=== PATIENT | female | born 2000 | race Asian ===

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

== ENCOUNTER 2018-01-12 12:58 | Observation (INO) | payer OTHER ==
[~2018-01-12] VITALS: Ht 157.5 cm; Wt 58.1 kg
[~2018-01-12 12:58] MED LIST: ALPR1TAB3 PO; BUPR-79 PO; CALC500C3 PO; IBUP-103 PO; VENL150C56 PO
[2018-01-12] MEDS ORDERED: SODIUM CHLORIDE 0.9% 500ML 500 ML IV STA (13:36)
[2018-01-12] MEDS ORDERED: KETOROLAC TROMETHAMINE 30 MG/ML VIAL IV STA (13:36)
--- NOTE | 2018-01-12 13:42 | EMERGENCY ROOM VISIT NOTE ---
History First contact with patient: 13:12 Chief Complaint: ABDOMINAL PAIN Stated Complaint: ABDOMINAL PAIN, HX OF PID & OVARIAN TOSIOS Nursing Triage Summary: abd pain starting this am pt denies n/v/d pt reports hx of treated PID, ovarian torsion, and abscess in fallopian tube History of Present Illness The patient is a 17 year old female who presents to the Emergency Room with complaints of lower abdominal pain that she woke up with this morning. She describes it as a sharp, stabbing, constant sensation particularly in the lower abdomen. She has not taken anything for pain. She denies any nausea or vomiting. Her last bowel movement was 20 minutes ago and reportedly normal. The patient is sexually active with one partner. She uses an IUD for control. The patient has a history of a laparoscopy in September 2017 for ovarian torsion and abscess of the fallopian tube. She has also been treated for PID. The patient is currently having her menses. She denies any heavy bleeding. No dyspareunia Review of Systems 10 system review performed and negative unless noted in HPI or below Past Medical/Surgical History History of PID, ovarian torsion, abscess of the fallopian tube and September 2017 Social History Smoking Status: Never Smoker Occupation Status: [place] [employer] student Current/Historical Medications Scheduled Bupropion (Wellbutrin Sr), 150 MG PO DAILY Venlafaxine Hcl (Effexor Extended Rel), 150 MG PO DAILY Scheduled PRN Alprazolam (Xanax), 1 MG PO DAILY PRN for Anxiety Physical Exam Vital Signs Date Time Temp Pulse Resp B/P (MAP) Pulse Ox O2 Delivery O2 Flow Rate FiO2 01/12/18 21:19 99 18 105/70 97 Room Air 01/12/18 19:28 73 18 108/65 100 Room Air 01/12/18 18:43 95 18 120/72 95 Room Air 01/12/18 16:54 83 16 119/72 100 Room Air 01/12/18 14:51 83 16 117/87 100 Room Air 01/12/18 13:09 36.3 86 20 118/89 99 Room Air Physical Exam VITALS: Vitals are noted on the nurse's note and reviewed by myself. Vital signs stable. GENERAL: 17-year-old female, mildly uncomfortable,. SKIN: The skin was without rashes, erythema, edema, or bruising. HEAD: Normocephalic atraumatic. MOUTH: Mucous membranes slightly dry NECK: Supple without nuchal rigidity. No lymphadenopathy. Cervical spine is nontender. No JVD. HEART: Regular rate and rhythm without murmurs gallops or rubs. LUNGS: Clear to auscultation bilaterally without wheezes, rales or rhonchi. No accessory muscle use. ABDOMEN: Positive bowel sounds x 4.Soft, tenderness in the lower abdomen left greater than right lower quadrant., without organomegaly. No guarding or rebound tenderness. : External genitalia free of any lesions. Speculum exam reveals a small amount of cream-colored discharge in the vaginal vault. Small area of erythema on the cervix. The os is closed. Bimanual exam reveals no cervical motion tenderness. No masses on the uterus or adnexa bilaterally. MUSCULOSKELETAL: No muscle atrophy, erythema, or edema noted. Strength 5/5 throughout. NEURO: Patient was alert and oriented to person place and time. Normal sensation to touch. No focal neurological deficits. Medical Decision & Procedures ER Provider Diagnostic Interpretation: CT abdomen and pelvis with IV and oral contrast IMPRESSION: Findings suggestive of early acute appendicitis. Discussed with Carmenza Prajapati at time of dictation. Electronically signed by: Jaxson Burch M.D. 01/12/2018 7:36 PM Dictated Date/Time: 01/12/2018 7:29 PM The status of this report is Signed. Draft = Not yet reviewed or approved by Radiologist. Signed = Reviewed and approved by Radiologist. pelvic US IMPRESSION: 1. Appropriately positioned IUD by sonography. 2. Unremarkable pelvic ultrasound. Electronically signed by: Jaxson Burch M.D. 01/12/2018 2:57 PM Dictated Date/Time: 01/12/2018 2:51 PM The status of this report is Signed. Draft = Not yet reviewed or approved by Radiologist. Signed = Reviewed and approved by Radiologist. Laboratory Results 01/12/18 13:30 Red Blood Count 5.13, Mean Corpuscular Volume 82.8, Mean Corpuscular Hemoglobin 28.5, Mean Corpuscular Hemoglobin Concent 34.4, Mean Platelet Volume 8.7, Neutrophils (%) (Auto) 81.5, Lymphocytes (%) (Auto) 10.9, Monocytes (%) (Auto) 5.7, Eosinophils (%) (Auto) 1.4, Basophils (%) (Auto) 0.3, Neutrophils # (Auto) 11.93, Lymphocytes # (Auto) 1.60, Monocytes # (Auto) 0.83, Eosinophils # (Auto) 0.21, Basophils # (Auto) 0.04 01/12/18 13:30 Test 01/12/18 13:20 01/12/18 13:30 01/12/18 19:20 Urine Color YELLOW Urine Appearance SL CLOUDY (CLEAR) Urine pH 6.0 (4.5-7.5) Urine Specific [place] 1.025 (1.000-1.030) Urine Protein NEG (NEG) Urine Glucose (UA) NEG (NEG) Urine Ketones NEG (NEG) Urine Occult Blood 3+ (NEG) Urine Nitrite NEG (NEG) Urine Bilirubin NEG (NEG) Urine Urobilinogen NEG (NEG) Urine Leukocyte Esterase SMALL (NEG) Urine RBC >30 /hpf (0-4) Urine WBC 10-30 /hpf (0-5) Urine Epithelial Cells >30 /lpf (0-5) Urine Bacteria 1+ (NEG) White Blood Count 14.64 K/uL (4.8-10.8) Red Blood Count 5.13 M/uL (4.2-5.4) Hemoglobin 14.6 g/dL (12.0-16.0) Hematocrit 42.5 % (37-47) Mean Corpuscular Volume 82.8 fL (80-100) Mean Corpuscular Hemoglobin 28.5 pg (25-34) Mean Corpuscular Hemoglobin Concent 34.4 g/dl (32-36) Platelet Count 280 K/uL (130-400) Mean Platelet Volume 8.7 fL (7.4-10.4) Neutrophils (%) (Auto) 81.5 % Lymphocytes (%) (Auto) 10.9 % Monocytes (%) (Auto) 5.7 % Eosinophils (%) (Auto) 1.4 % Basophils (%) (Auto) 0.3 % Neutrophils # (Auto) 11.93 K/uL (1.4-6.5) Lymphocytes # (Auto) 1.60 K/uL (1.2-3.4) Monocytes # (Auto) 0.83 K/uL (0.11-0.59) Eosinophils # (Auto) 0.21 K/uL (0-0.5) Basophils # (Auto) 0.04 K/uL (0-0.2) RDW Standard Deviation 42.9 fL (36.4-46.3) RDW Coefficient of Variation 14.2 % (11.5-14.5) Immature Granulocyte % (Auto) 0.2 % Immature Granulocyte # (Auto) 0.03 K/uL (0.00-0.02) Anion Gap 7.0 mmol/L (3-11) Est Creatinine Clear Calc Drug Dose 95.5 ml/min Estimated GFR () 133.9 Estimated GFR (Non- 115.6 BUN/Creatinine Ratio 17.6 (10-20) Calcium Level 8.8 mg/dl (8.5-10.1) Total Bilirubin 0.4 mg/dl (0.2-1) Aspartate Amino Transf (AST/SGOT) 14 U/L (15-37) Alanine Aminotransferase (ALT/SGPT) 29 U/L (12-78) Alkaline Phosphatase 87 U/L (45-117) Total Protein 8.1 gm/dl (6.4-8.2) Albumin 4.1 gm/dl (3.4-5.0) Globulin 4.0 gm/dl (2.5-4.0) Albumin/Globulin Ratio 1.0 (0.9-2) Lipase 85 U/L (73-393) Human Chorionic Gonadotropin, Qual NEG (NEG) Date/Time Source Procedure Growth Status 01/12/18 19:20 Cervix Swab Trichomonas Preparation - Final Complete Medications Administered Medications (Trade) Dose Ordered Sig/Jacob Route Start Time Stop Time Status Last Admin Dose Admin Ketorolac Tromethamine (Toradol Inj) 30 mg NOW STAT IV 01/12/18 13:36 01/12/18 13:39 DC 01/12/18 13:46 30 MG Sodium Chloride 500 ml @ 999 mls/hr Q31M STAT IV 01/12/18 13:36 01/12/18 14:06 DC 01/12/18 13:45 999 MLS/HR Ceftriaxone Sodium (Rocephin Inj) 1 gm NOW STAT IV 01/12/18 20:12 01/12/18 20:13 DC 01/12/18 20:34 1 GM ED Course Patient was seen and examined Vital signs including blood pressure were reviewed medications list was verified with patient Labs were obtained, and a saline lock was established The patient was medicated with Toradol 30 mg IV. She was hydrated with 500 mL in normal saline Imaging was performed and reviewed Upon reassessment, the patient was more comfortable. We discussed the results of her workup. She voiced understanding. A pelvic exam was performed. The CT was reviewed. The patient was given 1 dose of Rocephin 1 g IV. She was resting comfortably on exam. She did not want anything further for pain The CT findings were discussed with supervising physician in addition to general surgery who agreed to come and evaluate the patient. The patient will be taken to the OR for laparoscopic/possibly open appendectomy Medical Decision Differential diagnosis: Ovarian cyst, ovarian torsion, PID, abscess, ureteral stone, viral GI illness, constipation This patient is a 17-year-old female that presents to the emergency department with lower abdominal pain. She has a history of PID and ovarian torsion. On exam, she was tender in the lower abdomen left greater than right. Her lab results reveal leukocytosis. She also had a fair amount of white blood cells in her urine, however there were many epithelial cells. Pelvic exam was performed. She did not have any significant discharge or cervical motion tenderness to suggest PID. A CAT scan was performed. The radiologist was kind enough to call and inform me that this is likely early appendicitis. The case was discussed with general surgery. They agreed to come and evaluate the patient. The patient was ordered 1 dose of Rocephin to cover her urine. This was discussed with the surgery. She'll be taken directly to the OR for an appendectomy. This chart was completed in part utilizing [employer] Speech Voice Recognition software. Attempts were made to minimize the grammatical errors, random word insertions, pronoun errors and incomplete sentences. Any formal questions or concerns about the content, text or information contained within the body of this dictation should be directly addressed to the provider for clarification. Medication Reconcilliation Current Medication List: was personally reviewed by me Blood Pressure Screening Patient's blood pressure: Normal blood pressure Impression Primary Impression: Appendicitis Departure Information Referrals No Doctor, Assigned (PCP) Patient Instructions My [facility]
[2018-01-12 13:50] LABS: BASO % 0.3 %; BASO ABS # 0.04 K/uL (0-0.2); EOS % 1.4 %; EOS ABS # 0.21 K/uL (0-0.5); HEMATOCRIT 42.5 % (37-47); HEMOGLOBIN 14.6 g/dL (12.0-16.0); IG# 0.03 K/uL (0.00-0.02); LYMPH % 10.9 %; MEAN CELL VOLUME 82.8 fL (80-100); MEAN CORPUSCULAR HEMOGLOBIN 28.5 pg (25-34); MEAN CORPUSCULAR HGB CONC 34.4 g/dl (32-36); MEAN PLATELET VOLUME 8.7 fL (7.4-10.4); MONO % 5.7 %; MONO ABS # 0.83 K/uL (0.11-0.59); NEUT % 81.5 %; NEUT ABS # 11.93 K/uL (1.4-6.5); PLATELET COUNT 280 K/uL (130-400); RED CELL DISTRIBUTION WIDTH CV 14.2 % (11.5-14.5); RED CELL DISTRIBUTION WIDTH SD 42.9 fL (36.4-46.3); WHITE BLOOD COUNT 14.64 K/uL (4.8-10.8)
[2018-01-12 14:15] LABS: ALBUMIN 4.1 gm/dl (3.4-5.0); CALCIUM 8.8 mg/dl (8.5-10.1); CREATININE 0.75 mg/dl (0.60-1.20); POTASSIUM 3.4 mmol/L (3.5-5.1)
[2018-01-12 14:18] LABS: TOTAL PROTEIN 8.1 gm/dl (6.4-8.2)
--- NOTE | 2018-01-12 14:59 | DIAGNOSTIC IMAGING REPORT ---
PELVIC ULTRASOUND CLINICAL HISTORY: lower abd pain L>R hx torsion,PID COMPARISON STUDY: Pelvic ultrasound October 05, 2017. TECHNIQUE: Transabdominal and transvaginal sonography of the pelvis was performed. FINDINGS: The uterus measures 6 x 3 x 3.6 cm. Intrauterine device is appropriately positioned by sonography. Endometrium measures 4 mm in thickness. There is no adnexal mass. There is no free fluid. The right ovary measures 3 x 2.2 x 2.3 cm and the left ovary measures 3.7 x 1.6 x 1.9 cm. Color flow was identified within each ovary. IMPRESSION: 1. Appropriately positioned IUD by sonography. 2. Unremarkable pelvic ultrasound. Electronically signed by: Jaxson Burch M.D. 01/12/2018 2:57 PM Dictated Date/Time: 01/12/2018 2:51 PM
[2018-01-12] MEDS ORDERED: OPTIRAY 320 IV PRN (15:15)
--- NOTE | 2018-01-12 19:37 | DIAGNOSTIC IMAGING REPORT ---
CT OF THE ABDOMEN AND PELVIS WITH CONTRAST CLINICAL HISTORY: Lower abdominal pain and leukocytosis. COMPARISON STUDY: Pelvic ultrasound performed earlier today. TECHNIQUE: Following IV administration of 115 mL of [id number]-320, axial images of the abdomen and pelvis were obtained from the lung bases to the proximal femurs. Images were reviewed in the axial, sagittal, and coronal planes. IV contrast was administered without complication. A dose lowering technique was utilized adhering to the principles of ALARA. Oral contrast was administered. CT DOSE: 288.06 mGy.cm FINDINGS: The liver, spleen, adrenal glands, kidneys and pancreas are unremarkable. There is no hydronephrosis. There is no biliary or pancreatic ductal dilatation. There is no evidence for a bowel obstruction. The appendix is mildly dilated, measuring 8 mm. The tip is fluid-filled. There may be at least one appendicolith within the appendix. There is minimal periappendiceal infiltration. The appendix is retrocecal in location, located immediately anterior to the right psoas muscle. An intrauterine device is in place. The ovaries are not enlarged. There is no adnexal mass. There is no free fluid within the pelvis. There is no free air or abscess. IMPRESSION: Findings suggestive of early acute appendicitis. Discussed with Carmenza Prajapati at time of dictation. Electronically signed by: Jaxson Burch M.D. 01/12/2018 7:36 PM Dictated Date/Time: 01/12/2018 7:29 PM
[2018-01-12] MEDS ORDERED: CEFTRIAXONE SOD INJ 1 GM ADDVIAL IV STA (20:12)
--- NOTE | 2018-01-12 21:10 | History & Physical Bridge Note ---
H&P Re-Evaluation Bridge Note: I have examined the patient, reviewed the History & Physical and in the interval since the performance of the History & Physical I have noted the following changes of clinical significance: No changes noted pt examined lab and images reviewed loc tenderness rlq consistent with aCUTE APPENDICITIS PLAN LAP APPY POSSIBLE OPEN R AND C EXPALINED TO PT TALKED WITH MOTHER [id number]
--- NOTE | 2018-01-12 21:10 | Surgery Consultation ---
Consultation Date of Consultation: Jan 12, 2018. Attending Physician: Reason for Consultation: Acute Appendicitis History of Present Illness Patient is a 17F who presented to the ED this morning due to severe abdominal pain. States her pain has improved since she has received pain medication in the ED. PMHx significant for PID and ovarian torsion in Sep 2017 for which a laparoscopy was performed without any intervention at her hospital back home in [facility]. States no intervention was performed because she was told her ovary un-torsed itself. Denies any other abdominal surgeries. Denies N/V. States she has been sick this week with a cough, mild sore throat and chills but denies any fever. States she still feels these symptoms a little but they have resolved for the most part. Reports she has been moving her bowels and urinating without trouble. Denies use of blood thinning or anticoagulant medications. WBC 14.64. Ct Abd/pelvis shows appendix is mildly dilated, measuring 8 mm. The tip is fluid-filled. There may be at least one appendicolith within the appendix. There is minimal periappendiceal infiltration. Findings suggest early acute appendicitis. She has not eaten since last night. She did receive a dose 1g of Rocephin in the ED Social History Smoking Status: Never Smoker Occupation Status: [employer] student Allergies Coded Allergies: No Known Allergies (Unverified , 01/12/18) Home Medications Scheduled Bupropion (Wellbutrin Sr), 150 MG PO DAILY Venlafaxine Hcl (Effexor Extended Rel), 150 MG PO DAILY Scheduled PRN Alprazolam (Xanax), 1 MG PO DAILY PRN for Anxiety Current Inpatient Medications Current Inpatient Medications Medications (Trade) Dose Ordered Sig/Jacob Route Start Time Stop Time Status Last Admin Dose Admin Ioversol (Optiray 320) 100 ml UD PRN IV 01/12/18 15:15 01/16/18 15:14 Review of Systems Constitutional: + chills, No fever Respiratory: + cough Cardiovascular: No chest pain Abdomen: + pain (LLQ, RLQ), No nausea, No vomiting, No diarrhea, No constipation Genitourinary - Female: No dysuria Physical Exam Date Time Temp Pulse Resp B/P (MAP) Pulse Ox O2 Delivery O2 Flow Rate FiO2 01/12/18 19:28 73 18 108/65 100 Room Air 01/12/18 18:43 95 18 120/72 95 Room Air 01/12/18 16:54 83 16 119/72 100 Room Air 01/12/18 14:51 83 16 117/87 100 Room Air 01/12/18 13:09 36.3 86 20 118/89 99 Room Air General Appearance: WD/WN, no apparent distress Head: normocephalic, atraumatic ENT: hearing grossly normal Respiratory/Chest: chest non-tender, lungs clear, normal breath sounds, no respiratory distress, no accessory muscle use Cardiovascular: regular rate, rhythm, no gallop, no murmur Abdomen/GI: normal bowel sounds, soft, no organomegaly, no pulsatile mass, + tenderness (RLQ, LLQ) Neurologic/Psych: alert, normal mood/affect, oriented x 3 Skin: normal color, warm/dry Laboratory Results Last 24 Hours Test 01/12/18 13:20 01/12/18 13:30 01/12/18 19:20 Urine Color YELLOW Urine Appearance SL CLOUDY Urine pH 6.0 Urine Specific [place] 1.025 Urine Protein NEG Urine Glucose (UA) NEG Urine Ketones NEG Urine Occult Blood 3+ Urine Nitrite NEG Urine Bilirubin NEG Urine Urobilinogen NEG Urine Leukocyte Esterase SMALL Urine RBC >30 /hpf Urine WBC 10-30 /hpf Urine Epithelial Cells >30 /lpf Urine Bacteria 1+ White Blood Count 14.64 K/uL Red Blood Count 5.13 M/uL Hemoglobin 14.6 g/dL Hematocrit 42.5 % Mean Corpuscular Volume 82.8 fL Mean Corpuscular Hemoglobin 28.5 pg Mean Corpuscular Hemoglobin Concent 34.4 g/dl Platelet Count 280 K/uL Mean Platelet Volume 8.7 fL Neutrophils (%) (Auto) 81.5 % Lymphocytes (%) (Auto) 10.9 % Monocytes (%) (Auto) 5.7 % Eosinophils (%) (Auto) 1.4 % Basophils (%) (Auto) 0.3 % Neutrophils # (Auto) 11.93 K/uL Lymphocytes # (Auto) 1.60 K/uL Monocytes # (Auto) 0.83 K/uL Eosinophils # (Auto) 0.21 K/uL Basophils # (Auto) 0.04 K/uL RDW Standard Deviation 42.9 fL RDW Coefficient of Variation 14.2 % Immature Granulocyte % (Auto) 0.2 % Immature Granulocyte # (Auto) 0.03 K/uL Sodium Level 137 mmol/L Potassium Level 3.4 mmol/L Chloride Level 102 mmol/L Carbon Dioxide Level 28 mmol/L Anion Gap 7.0 mmol/L Blood Urea Nitrogen 13 mg/dl Creatinine 0.75 mg/dl Est Creatinine Clear Calc Drug Dose 95.5 ml/min Estimated GFR () 133.9 Estimated GFR (Non- 115.6 BUN/Creatinine Ratio 17.6 Random Glucose 93 mg/dl Calcium Level 8.8 mg/dl Total Bilirubin 0.4 mg/dl Aspartate Amino Transf (AST/SGOT) 14 U/L Alanine Aminotransferase (ALT/SGPT) 29 U/L Alkaline Phosphatase 87 U/L Total Protein 8.1 gm/dl Albumin 4.1 gm/dl Globulin 4.0 gm/dl Albumin/Globulin Ratio 1.0 Lipase 85 U/L Human Chorionic Gonadotropin, Qual NEG Assessment & Plan Acute appendicitis Leukocytosis, symptoms and imaging point to acute appendicitis. Will plan for laparoscopic appendectomy, possible open with Dr. Dominguez in the OR tonight. NPO, 1g Rocephin already given, IV Fluids, IV pain medication PRN, IV Zofran PRN, SCDs. Dr. Dominguez in to see and examine patient. OR Notified. Please contact with questions or concerns.
[2018-01-12] MEDS ORDERED: LIDOCAINE/EPINEPHRINE 1% 20 ML VIAL ONE (21:50)
[2018-01-12] MEDS ORDERED: LABETALOL HCL IV 5 MG/ML 20ML IV PRN (22:00)
[2018-01-12] MEDS ORDERED: MEPERIDINE HCL 25 MG/ML CARP IV PRN (22:00)
[2018-01-12] MEDS ORDERED: FENTANYL CITRATE INJ 50 MCG/1 ML 2 ML VIAL IV PRN (22:00)
[2018-01-12] MEDS ORDERED: ATROPINE SULFATE 0.1 MG/ML 5ML SYR IV PRN (22:00)
[2018-01-12] MEDS ORDERED: HYDROmorphone INJ 1 MG/ML SYR IV PRN (22:00)
[2018-01-12] MEDS ORDERED: EpHEDrine SULFATE INJ 50 MG/ML AMP IV PRN (22:00)
[2018-01-12] MEDS ORDERED: ONDANSETRON INJ 2 MG/ML 2 ML VIAL IV PRN (22:00)
[2018-01-12] MEDS ORDERED: FENTANYL CITRATE INJ 50 MCG/1 ML 2 ML VIAL ONE ×3 (22:27→23:58)
[2018-01-12] MEDS ORDERED: MIDAZOLAM HCL 1 MG/ML 2ML VIAL ONE (22:27)
--- NOTE | 2018-01-12 23:35 | [facility] Post Operative Brief Note ---
Immediate Operative Summary Operative Date Jan 12, 2018. Pre-Operative Diagnosis Acute Appendicitis Post-Operative Diagnosis Acute Appendicitis Procedure(s) Performed Laparoscopic Appendectomy Surgeon Telephonic Nurse Surgeon(s) CHANDLER Woody Estimated Blood Loss 5ML Findings See Below acute non ruptured Specimens A. Appendix Anesthesia Type General
[2018-01-12] MEDS ORDERED: ONDANSETRON INJ 2 MG/ML 2 ML VIAL ONE ×2 (23:55→23:59)
[2018-01-12] MEDS ORDERED: PROPOFOL IV EMULSION 10 MG/ML 20 ML VIAL IV ONE (23:58)
[2018-01-12] MEDS ORDERED: LIDOCAINE HCL 2% 2 ML VIAL (20MG/ML) ONE (23:58)
[2018-01-12] MEDS ORDERED: DEXAMETHASONE SOD INJ 4 MG/ML VIAL ONE (23:59)
[2018-01-12] MEDS ORDERED: ROCURONIUM BROMID 50MG/5ML SYR ONE (23:59)
[2018-01-12] MEDS ORDERED: ROCURONIUM BROMIDE 10 MG/ML 5 ML VIAL IV ONE (23:59)
[2018-01-12] MEDS ORDERED: NEOSTIGMINE METHYLSULFATE 5 MG/5 ML SYR ONE (23:59)
[2018-01-13] VITALS (8 sets, daily range): BP systolic 96–119; BP diastolic 63–80; PULSE 61–78; TEMP 36.5–37; O2SAT 96–98; Ht 157.5 cm; Wt 58.1 kg
[2018-01-13] MEDS ORDERED: HYDROmorphone INJ 1 MG/ML SYR IV PRN
[2018-01-13] MEDS ORDERED: OXYCODONE/ACETAMINOPHEN 5-325 TAB PO PRN
[2018-01-13] MEDS ORDERED: GLYCOPYRROLATE INJ 0.2 MG/ML VIAL ONE
[2018-01-13] MEDS ORDERED: ONDANSETRON INJ 2 MG/ML 2 ML VIAL IV PRN
[2018-01-13] MEDS ORDERED: ACETAMINOPHEN 325 MG TAB PO PRN
--- NOTE | 2018-01-13 00:03 | Anesthesiology Progress Note ---
Anesthesia Post Op Note Date & Time Jan 13, 2018 at 00:03 Vital Signs Pain Intensity: 6.0 Vital Signs Past 12 Hours Date Time Temp Pulse Resp B/P (MAP) Pulse Ox O2 Delivery O2 Flow Rate FiO2 01/12/18 21:19 99 18 105/70 97 Room Air 01/12/18 19:28 73 18 108/65 100 Room Air 01/12/18 18:43 95 18 120/72 95 Room Air 01/12/18 16:54 83 16 119/72 100 Room Air 01/12/18 14:51 83 16 117/87 100 Room Air 01/12/18 13:09 36.3 86 20 118/89 99 Room Air Notes Mental Status: alert / awake / arousable, participated in evaluation Pt Amnestic to Procedure: Yes Nausea / Vomiting: adequately controlled Pain: adequately controlled Airway Patency, RR, SpO2: stable & adequate BP & HR: stable & adequate Hydration State: stable & adequate Anesthetic Complications: no major complications apparent
--- NOTE | 2018-01-13 00:07 | Discharge Instructions ---
Discharge Instructions Date of Service Jan 13, 2018. Admission Reason for Admission: Abdominal Pain, Hx Of Pid & Ovarian Tosios Discharge Discharge Diagnosis / Problem: Acute Appendicitis Discharge Goals Goal(s): Decrease discomfort, Improve function Activity Recommendations Activity Limitations: as noted below Lifting Limitations: no more than 10 pounds, until after follow-up appointment Exercise/Sports Limitations: until after follow-up appointment May Resume Sexual Activity: after follow-up appointment Shower/Bathe: may shower/bathe in 3 days (Please do not submerge incision sites in water.) Driving or Machine Use: resume 3 days after discharge (Please do not drive while using narcotic pain medication) . Instructions / Follow-Up Instructions / Follow-Up You have steri-strips covering your incision sites. please allow these to fall off on their own. You have been prescribed percocet to take as needed and directed for pain relief. You may alternate this with ibuprofen for better pain relief as well. Please follow-up with Dr. Dominguez in 1-2 weeks. Please contact our office at to schedule an appointment if you have not done so already. Please contact our office with any questions or concerns. [facility]. [address] [place] [address]. Current Hospital Diet Patient's current hospital diet: Clear Liquid Diet Discharge Diet Recommended Diet: Regular Diet Procedures Procedures Performed: Laparoscopic Appendectomy Pending Studies Studies pending at discharge: yes List of pending studies: pathology Medical Emergencies . Who to Call and When: Medical Emergencies: If at any time you feel your situation is an emergency, please call 911 immediately. . Non-Emergent Contact Non-Emergency issues call your: Primary Care Provider, Surgeon Call Non-Emergent contact if: you have a fever, temperature is above 101.5, your pain is not controlled, your pain is worsening, wound has increased drainage, wound has increased redness, you have any medication questions . "Provider Documentation" section prepared by Gian Talavera. . VTE Core Measure Inpt VTE Proph given/why not?: [facility] [place] Search Results: patient reviewed within database, no issues identified
[2018-01-13] MEDS ORDERED: IV FLUIDS COMPLETED PRN (00:30)
[2018-01-13] MEDS ORDERED: NURSING VERBAL MED ORDER ONE (01:00)
[2018-01-13] MEDS: LACTATED RINGER'S 1000ML 1,000 ML IV SCH ×2 (01:10→11:30)
[2018-01-13] MEDS: HYDROmorphone INJ 0.5 MG/0.5 ML SYR IV PRN ×2 (01:28→06:23)
[2018-01-13] MEDS ORDERED: ONDANSETRON INJ 2 MG/ML 2 ML VIAL IV ONE (01:30)
--- NOTE | 2018-01-13 01:35 | OPERATIVE REPORT ---
DATE OF OPERATION: 01/12/2018 SURGEON: Leonard Dominguez MD. BEHAVIOR MANAGEMENT SPECIALIST: Gian Yoder PA-C. PREOPERATIVE DIAGNOSIS: Acute appendicitis. POSTOPERATIVE DIAGNOSIS: Same, nonruptured. PROCEDURE: Laparoscopic appendectomy. SUMMARY: After induction of general endotracheal anesthesia, the patient's abdomen was prepped with Betadine scrubbing solution and properly draped. We made a small incision transversely above the umbilicus through an old scar that she had had before. Under direct visualization, we placed a Veress needle, CO2 insufflated followed by 5 mm trocar. Point of entry inspected and no injury identified. At this point, we placed right upper quadrant port with preemptive local analgesia of 1% Xylocaine, this was a 5 mm port. Our attention was turned to the right lower quadrant where we could see the cecum. The appendix we could barely see but it seemed to be down towards the pelvic brim. We did not see any other inflammatory process near it. The patient has had a previous PID, torsed ovary, but we stayed away and did not see anything overtly. At this point, I changed the 5 mm umbilical port to 11 mm under direct visualization. I used the 5 mm port towards left lower quadrant. We then elevated the appendix. I created a window between the appendix and the cecum sufficient enough that I used the purple stapler to divide and elevate the appendix. The mesoappendix and fibrous bands crossing the retroperitoneal area were freed up with blunt dissection. Little oozing was appreciated with these bands and we controlled it with cautery and that also clipped at few areas. Once we had suspended the appendix off the cecal area, the mesoappendix was taken with a bravo stapler. The area was checked for hemostasis. There appeared to be minimal oozing around the staple line. We cauterized here with cautery at 25. We were well away from the terminal ileum. The appendix was then placed in an Endopouch and taken out through the umbilical port. The area was then checked for hemostasis. The patient was placed in reverse Trendelenburg position, irrigated the area out and then suctioned out the pelvis. There was no bleeding. Hemostasis was excellent. At this point, individual trocars were taken out under direct visualization and lastly the umbilical trocar. The umbilical opening was closed with fasting stitch of 0 Vicryl x2 interrupted, 4-0 Monocryl subcuticular. Steri-Strips applied. The procedure was tolerated well by the patient. Estimated blood loss approximately 5 mL. The patient was taken to recovery room in good condition. I attest to the content of the Intraoperative Record and any orders documented therein. Any exception s are noted below.
[2018-01-13 05:42] LABS: BASO % 0.1 %; BASO ABS # 0.01 K/uL (0-0.2); HEMATOCRIT 37.2 % (37-47); HEMOGLOBIN 12.4 g/dL (12.0-16.0); IG# 0.04 K/uL (0.00-0.02); LYMPH % 5.2 %; LYMPH ABS # 0.73 K/uL (1.2-3.4); MEAN CELL VOLUME 84.2 fL (80-100); MEAN CORPUSCULAR HEMOGLOBIN 28.1 pg (25-34); MEAN CORPUSCULAR HGB CONC 33.3 g/dl (32-36); MEAN PLATELET VOLUME 8.9 fL (7.4-10.4); MONO % 1.9 %; MONO ABS # 0.26 K/uL (0.11-0.59); NEUT % 92.5 %; NEUT ABS # 12.87 K/uL (1.4-6.5); PLATELET COUNT 298 K/uL (130-400); RED CELL DISTRIBUTION WIDTH CV 14.2 % (11.5-14.5); RED CELL DISTRIBUTION WIDTH SD 43.2 fL (36.4-46.3); WHITE BLOOD COUNT 13.91 K/uL (4.8-10.8)
[2018-01-13] MEDS ORDERED: CEFOXITIN IV 2,000 MG in DEXTROSE 5% 50ML 50 ML IV ONE (06:00)
[2018-01-13 06:27] LABS: CALCIUM 8.3 mg/dl (8.5-10.1); CARBON DIOXIDE 25 mmol/L (21-32); CREATININE 0.63 mg/dl (0.60-1.20); GLUCOSE 146 mg/dl (70-99); SODIUM 134 mmol/L (136-145)
--- NOTE | 2018-01-13 06:33 | Surgery Progress Note ---
Surgery Progress Note Date of Service Jan 13, 2018. Subjective Post OP Day: 1 + complaints (Still having some incision pain.), + ambulating, + flatus, + diet (Tolerated some saltines and pudding), No bowel movement, No nausea, No vomiting Objective Vital Signs: Date Time Temp Pulse Resp B/P (MAP) Pulse Ox O2 Delivery O2 Flow Rate FiO2 01/13/18 03:30 36.8 69 14 111/75 (87) 98 Room Air 01/13/18 02:30 36.5 78 14 113/73 (86) 96 Room Air 01/13/18 01:30 36.6 65 14 119/80 (93) 98 Room Air 01/13/18 01:06 37.0 62 16 118/79 98 Room Air 01/13/18 01:00 36.6 61 18 113/77 (89) 97 Room Air 01/13/18 00:30 98 Room Air 01/13/18 00:25 36.1 61 16 109/70 100 Nasal Cannula 2 01/13/18 00:15 58 16 109/72 100 Nasal Cannula 2 01/13/18 00:05 59 15 104/67 100 Nasal Cannula 2 01/12/18 23:55 62 18 118/70 100 Nasal Cannula 2 01/12/18 23:48 36 71 16 128/82 100 Nasal Cannula 2 01/12/18 21:19 99 18 105/70 97 Room Air 01/12/18 19:28 73 18 108/65 100 Room Air 01/12/18 18:43 95 18 120/72 95 Room Air 01/12/18 16:54 83 16 119/72 100 Room Air 01/12/18 14:51 83 16 117/87 100 Room Air 01/12/18 13:09 36.3 86 20 118/89 99 Room Air General Appearance: WD/WN, no apparent distress Head: normocephalic, atraumatic Respiratory/Chest: no respiratory distress, no accessory muscle use Abdomen: non distended, soft, no organomegaly, + tenderness (Incisional) Incision(s): clean, intact, no erythema, drainage (mild drainage into bandage from umbilical incision site) Laboratory Results: Results Past 24 Hours Test 01/12/18 13:20 01/12/18 13:30 01/12/18 19:20 2/18/18 05:22 Range/Units Urine Color YELLOW Urine Appearance SL CLOUDY CLEAR Urine pH 6.0 4.5-7.5 Urine Specific [place] 1.025 1.000-1.030 Urine Protein NEG NEG Urine Glucose (UA) NEG NEG Urine Ketones NEG NEG Urine Occult Blood 3+ NEG Urine Nitrite NEG NEG Urine Bilirubin NEG NEG Urine Urobilinogen NEG NEG Urine Leukocyte Esterase SMALL NEG Urine RBC >30 0-4 /hpf Urine WBC 10-30 0-5 /hpf Urine Epithelial Cells >30 0-5 /lpf Urine Bacteria 1+ NEG White Blood Count 14.64 13.91 4.8-10.8 K/uL Red Blood Count 5.13 4.42 4.2-5.4 M/uL Hemoglobin 14.6 12.4 12.0-16.0 g/dL Hematocrit 42.5 37.2 37-47 % Mean Corpuscular Volume 82.8 84.2 80-100 fL Mean Corpuscular Hemoglobin 28.5 28.1 25-34 pg Mean Corpuscular Hemoglobin Concent 34.4 33.3 32-36 g/dl Platelet Count 280 298 130-400 K/uL Mean Platelet Volume 8.7 8.9 7.4-10.4 fL Neutrophils (%) (Auto) 81.5 92.5 % Lymphocytes (%) (Auto) 10.9 5.2 % Monocytes (%) (Auto) 5.7 1.9 % Eosinophils (%) (Auto) 1.4 0.0 % Basophils (%) (Auto) 0.3 0.1 % Neutrophils # (Auto) 11.93 12.87 1.4-6.5 K/uL Lymphocytes # (Auto) 1.60 0.73 1.2-3.4 K/uL Monocytes # (Auto) 0.83 0.26 0.11-0.59 K/uL Eosinophils # (Auto) 0.21 0.00 0-0.5 K/uL Basophils # (Auto) 0.04 0.01 0-0.2 K/uL RDW Standard Deviation 42.9 43.2 36.4-46.3 fL RDW Coefficient of Variation 14.2 14.2 11.5-14.5 % Immature Granulocyte % (Auto) 0.2 0.3 % Immature Granulocyte # (Auto) 0.03 0.04 0.00-0.02 K/uL Sodium Level 137 136-145 mmol/L Potassium Level 3.4 3.5-5.1 mmol/L Chloride Level 102 98-107 mmol/L Carbon Dioxide Level 28 21-32 mmol/L Anion Gap 7.0 3-11 mmol/L Blood Urea Nitrogen 13 7-18 mg/dl Creatinine 0.75 0.60-1.20 mg/dl Est Creatinine Clear Calc Drug Dose 95.5 ml/min Estimated GFR () 133.9 Estimated GFR (Non- 115.6 BUN/Creatinine Ratio 17.6 10-20 Random Glucose 93 70-99 mg/dl Calcium Level 8.8 8.5-10.1 mg/dl Total Bilirubin 0.4 0.2-1 mg/dl Aspartate Amino Transf (AST/SGOT) 14 15-37 U/L Alanine Aminotransferase (ALT/SGPT) 29 12-78 U/L Alkaline Phosphatase 87 45-117 U/L Total Protein 8.1 6.4-8.2 gm/dl Albumin 4.1 3.4-5.0 gm/dl Globulin 4.0 2.5-4.0 gm/dl Albumin/Globulin Ratio 1.0 0.9-2 Lipase 85 73-393 U/L Human Chorionic Gonadotropin, Qual NEG NEG Microbiology Results 01/12/18 Trichomonas Preparation - Final, Complete 01/12/18 Gram Stain, Received Pending 01/12/18 Genital Culture, Received Pending 01/12/18 Urine Culture, Received Pending 01/12/18 Urine Culture, Received Pending Assessment & Plan POD #1 s/p laparoscopic appendectomy Still in some pain, No N/V, Tolerating clears. WBC down to 13.91. 2g Mefoxin given this AM. Keep clears for now, ADAT. IV dilaudid and PO percocet PRN for pain. Patient may ambulate as tolerated. Possible D/C today if pain is controlled and she is tolerating some foods. Findings discussed with Dr. Dominguez. Please contact with questions or concerns.
[2018-01-13] MEDS ORDERED: OXYC-57 PO (07:07)
[2018-01-13 08:47] LABS: BLOOD UREA NITROGEN 8 mg/dl (7-18)
[2018-01-13] MEDS: OXYCODONE/ACETAMINOPHEN 5-325 TAB PO PRN ×2 (08:49→14:12)
--- NOTE | 2018-01-14 21:22 | Discharge Summary ---
Discharge Summary Date of Service Jan 14, 2018. Admission Date/Reason Jan 12, 2018 at 23:51 Appendicitis. Discharge Date/Disposition Jan 13, 2018 Home Diagnosis Principal Diagnosis: Acute appendicitis Procedure(s) Performed Laparoscopic appendectomy Medication Reconciliation Percocet 5mg/325mg PO 1-2 Tablets Q4H PRN for pain x 3 days Disp: 30 Tabs Admission Physical Exam As per Admitting History & Physical. Hospital Course 01/12/18: Patient presented to the ED this evening due to severe abdominal pain starting earlier in the morning. Reports no other accompanying symptoms at this time. diagnostic findings show an elevated white count and CT findings consistent with acute appendicitis. At this time she was given pre-op antibiotics and scheduled for laparoscopic appendectomy, possible open with Dr. Dominguez in the OR this evening. The procedure was performed laparoscopically without complications and the patient was admitted to med/surg on observation for the night. 01/13/18: Today patient is feeling well. She does have some incisional tenderness but her pain is controlled, No N/V. She is urinating without difficulty but does report some mild pain with urination most likely due to catheter placement during the procedure. She was tolerating a clear liquid diet at this time. Her diet was advanced as tolerated and she was discharged later in the day once she was tolerating some foods. She was discharged with 3 days worth of percocet for post-op pain and given instructions to follow-up with Dr. Dominguez in the general surgery clinic in 1-2 weeks. Discharge Instructions Please refer to the electronic Patient Visit Report (Discharge Instructions) for additional information.
== END 2018-01-13 16:10 | disposition home or self-care (01) ==
LOC: C.EDB 13:00 → C.MSN 23:51 → ENRESERV 01-13 00:14
PROVIDERS: ADMIT Surgery; ATTEND Surgery
DX: K35.80 Unspecified acute appendicitis (principal); F32.9 Major depressive disorder, single episode, unspecified; Z97.5 Presence of (intrauterine) contraceptive device